=== PATIENT | male | born 1950 ===

== ENCOUNTER 2021-05-28 06:00 | Day surgery (SDC) | payer OTHER ==
[~2021-05-28 06:00] MED LIST: COZAAR50 MG PO; LIPITOR40 M1 PO; METFORMIN HCL500 M3 PO
== END 2021-05-28 10:35 | disposition home or self-care (01) ==
LOC: CIR.AMB 06:00
PROVIDERS: ATTEND Orthopaedic Surgery Hand Surgery
DX: G56.02 Carpal tunnel syndrome, left upper limb (principal); I10 Essential (primary) hypertension; J45.909 Unspecified asthma, uncomplicated; Z87.891 Personal history of nicotine dependence; M19.90 Unspecified osteoarthritis, unspecified site; Z79.84 Long term (current) use of oral hypoglycemic drugs; E11.9 Type 2 diabetes mellitus without complications

== ENCOUNTER 2022-07-22 05:24 | Day surgery (SDC) | payer OTHER ==
[~2022-07-22] VITALS: Ht 165.1 cm; Wt 74.4 kg
== END 2022-07-22 10:30 | disposition home or self-care (01) ==
LOC: CIR.AMB 05:24
PROVIDERS: ATTEND Orthopaedic Surgery Hand Surgery
DX: G56.01 Carpal tunnel syndrome, right upper limb (principal); Z20.822 Contact with and (suspected) exposure to COVID-19; E11.9 Type 2 diabetes mellitus without complications; E78.00 Pure hypercholesterolemia, unspecified; E78.3 Hyperchylomicronemia